=== PATIENT | male | born 1985 ===

== ENCOUNTER 2023-11-08 16:04 | Emergency (ER) | payer OTHER ==
[2023-11-08] MEDS ORDERED: ACETAMINOPHEN TAB 325 MG TAB ONE (23:50)
[2023-11-08] MEDS ORDERED: IBUPROFEN 600 MG TAB PO ONE (23:50)
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
== END 2023-11-09 00:04 | disposition home or self-care (01) ==
LOC: EC 16:04
CPT/HCPCS: 99283